=== PATIENT | female | born 1990 | race American Indian/Alaskan Native ===

== ENCOUNTER 2017-07-06 10:33 | Emergency (ER) | payer SELFPAY ==
[2017-07-06 10:59] VITALS: RESP 18; TEMP 98.6
--- NOTE | 2017-07-06 11:06 | ED PDOC ---
Arrival/HPI - General Chief Complaint: Back Pain Time Seen by Provider: 07/06/17 10:56 Historian: Patient - History of Present Illness Time/Duration: > month Symptom Onset: Gradual Symptom Course: Unchanged Quality: Aching Severity Level: Mild Activities at Onset: Rest Associated Symptoms (Text): 07/06/17 11:04 Patient complains of approximately a one-month history of a left lower back pain with radiation into her left anterior thigh. No injury or trauma. No numbness tingling or paresthesias. No weakness. No abdominal pain nausea vomiting diarrhea constipation or GI bleed. No genitourinary symptoms. No vaginal discharge or bleeding. No fever or chills. She takes Advil with some improvement, but the pain returns. Past Medical History - Infectious Disease Hx of Infectious Diseases: None - Reproductive Menopause: No - Past Medical History Past Medical History: No Previous - Psychiatric Hx Depression: No Hx Emotional Abuse: No Hx Physical Abuse: No Hx Substance Use: No - Past Surgical History Past Surgical History: No Previous - Anesthesia Hx Anesthesia: No Hx Anesthesia Reactions: No Hx Malignant Hyperthermia: No - Suicidal Assessment Feels Threatened In Home Enviroment: No Family/Social History - Physician Review Nursing Documentation Reviewed: Yes Family/Social History: Unknown Family HX Smoking Status: Light Smoker < 10 Cigarettes Daily Hx Alcohol Use: No Hx Substance Use: No Allergies/Home Meds Allergies/Adverse Reactions: Allergies No Known Allergies Allergy (Verified 10/08/16 17:56) Review of Systems - Physician Review All systems were reviewed & negative as marked: Yes - Review of Systems Constitutional: Normal Respiratory: Normal Cardiovascular: Normal Gastrointestinal: Normal Genitourinary Female: Normal Musculoskeletal: Back Pain. absent: Neck Pain Neurological: absent: Headache, Dizziness, Focal Weakness, Gait Changes Physical Exam Vital Signs Temp Pulse Resp BP Pulse Ox 07/06/17 10:59 116/85 07/06/17 10:53 98.6 F 72 18 128/84 98 Temperature: Afebrile Blood Pressure: Normal Pulse: Regular Respiratory Rate: Normal Appearance: Positive for: Well-Appearing, Non-Toxic, Comfortable Pain Distress: None Mental Status: Positive for: Alert and Oriented X 3 - Systems Exam Head: Present: Atraumatic, Normocephalic Neck: Present: Normal Range of Motion Respiratory/Chest: Present: Clear to Auscultation, Good Air Exchange. No: Respiratory Distress, Accessory Muscle Use Cardiovascular: Present: Regular Rate and Rhythm, Normal S1, S2. No: Murmurs Abdomen: Present: Normal Bowel Sounds. No: Tenderness, Distention, Peritoneal Signs, Rebound, Guarding Back: Present: Normal Inspection, Paraspinal Tenderness (Left lumbar paraspinous tenderness with no spasm. No sciatic notch tenderness.). No: CVA Tenderness, Midline Tenderness Lower Extremity: Present: Normal Inspection, Normal ROM, Neurovascularly Intact. No: Edema, Tenderness, Swelling Neurological: Present: GCS=15, CN II-XII Intact, Speech Normal, Motor Func Grossly Intact Skin: Present: Warm, Dry, Normal Color. No: Rashes Medical Decision Making ED Course and Treatment: 07/06/17 11:10 Patient reports that she missed work the day before yesterday and the day before that because of this problem and is requesting a note. I discussed with her that I could not give her a note for days missed in the past. She will have her discharge instructions for today. She will be given a prescription for Naprosyn and Flexeril and the phone number for the clinic. Disposition/Present on Arrival - Present on Arrival Any Indicators Present on Arrival: No History of DVT/PE: No History of Uncontrolled Diabetes: No Urinary Catheter: No History of Decub. Ulcer: No History Surgical Site Infection Following: None - Disposition Have Diagnosis and Disposition been Completed?: Yes Diagnosis: Low back pain Disposition: HOME/ ROUTINE Disposition Time: 11:11 Patient Plan: Discharge Condition: GOOD Discharge Instructions (ExitCare): Acute Low Back Pain (ED) Additional Instructions: Rest and moist heat. Follow-up in the clinic. Follow up in ER as needed. Prescriptions: Cyclobenzaprine [Cyclobenzaprine HCl] 5 mg PO Q8 #15 tab Naproxen [Naprosyn] 500 mg PO BID #14 tab Forms: [employer] (Panamanian), WORK NOTE
[2017-07-06 12:03] VITALS: BP 111/72; PULSE 79; O2SAT 99
== END 2017-07-06 12:03 | disposition home or self-care (01) ==
LOC: ED 10:33
DX: M54.5 Low back pain (principal)
CPT/HCPCS: 96372; 99283; J1885

== ENCOUNTER 2018-02-22 12:52 | Emergency (ER) | payer MEDICAID ==
[2018-02-22] MEDS ORDERED: Sodium Chloride 0.9% 500 ML IV STA (13:59)
--- NOTE | 2018-02-22 13:59 | ED PDOC ---
Arrival/HPI - General Chief Complaint: Female Genitourinary Time Seen by Provider: 02/22/18 13:58 Historian: Patient - History of Present Illness Narrative History of Present Illness (Text): 02/22/18 13:59 This 28 yo female who denies pmh presents to this ED c/o feeling light headed, vaginal spotting, urinary frequency, and missed last menstrual period x 3 days ago. Patient feels she may be . Patient also c/o right pelvic cramping. Patient denies flank pain, nausea, vomiting, sob, cp, dysuria, vaginal discharge, CROW, fever, or abnormal gait. LMP: January 19, 2018 Patient denies previous , or Time/Duration: Other (see hpi) Context: Home Past Medical History - Provider Review Nursing Documentation Reviewed: Yes - Past History Past History: No Previous - Infectious Disease Hx of Infectious Diseases: None - Reproductive Menopause: No - Past Medical History Past Medical History: No Previous - Cardiac Hx Cardiac Disorders: No - Pulmonary Hx Respiratory Disorders: No - Neurological Hx Neurological Disorder: No - HEENT Hx HEENT Disorder: No - Endocrine/Metabolic Hx Endocrine Disorders: No - Hematological/Oncological Hx Blood Disorders: No - Integumentary Hx Dermatological Disorder: No - Musculoskeletal/Rheumatological Hx Musculoskeletal Disorders: Yes Hx Back Pain: Yes - Gastrointestinal Hx Gastrointestinal Disorders: No - Genitourinary/Gynecological Hx Genitourinary Disorders: No - Psychiatric Hx Psychophysiologic Disorder: No Hx Depression: No Hx Emotional Abuse: No Hx Physical Abuse: No Hx Substance Use: Yes - Past Surgical History Past Surgical History: No Previous - Anesthesia Hx Anesthesia: No Hx Anesthesia Reactions: No Hx Malignant Hyperthermia: No - Suicidal Assessment Feels Threatened In Home Enviroment: No Family/Social History - Physician Review Nursing Documentation Reviewed: Yes Family/Social History: Other (noncontributory) Smoking Status: Current Some Days Smoker Hx Alcohol Use: Yes Frequency of alcohol use: Socially Hx Substance Use: Yes Substance used: marijuana Hx Substance Use Treatment: No Allergies/Home Meds Allergies/Adverse Reactions: Allergies seasonal Allergy (Uncoded 02/22/18 13:22) CONGESTION Review of Systems - Review of Systems Constitutional: Normal. absent: Fatigue, Weight Change, Fevers, Night Sweats Eyes: Normal ENT: Normal Respiratory: Normal Cardiovascular: Normal Gastrointestinal: Other (Right pelvic pain). absent: Constipation, Diarrhea, Nausea, Vomiting Genitourinary Female: Frequency, Vaginal Bleeding. absent: Dysuria, Vaginal Discharge Musculoskeletal: Normal. absent: Back Pain Skin: Normal. absent: Rash Neurological: Normal, Dizziness. absent: Headache, Focal Weakness, Gait Changes , Speech Changes, Facial Droop, Disequilibrium Endocrine: Normal Hemo/Lymphatic: Normal Psychiatric: Normal Physical Exam Vital Signs Temp Pulse Resp BP Pulse Ox 02/22/18 16:40 98.4 F 86 18 124/74 100 02/22/18 14:52 99 F 97 H 18 127/80 100 02/22/18 13:17 99 F 97 H 18 127/80 100 02/22/18 12:52 99 F 97 H 16 127/80 100 Temperature: Afebrile Blood Pressure: Normal Pulse: Regular Respiratory Rate: Normal Appearance: Positive for: Well-Appearing, Non-Toxic, Comfortable Pain Distress: None Mental Status: Positive for: Alert and Oriented X 3 - Systems Exam Head: Present: Atraumatic, Normocephalic Pupils: Present: PERRL Extroacular Muscles: Present: EOMI Conjunctiva: Present: Normal Mouth: Present: Moist Mucous Membranes Neck: Present: Normal Range of Motion Respiratory/Chest: Present: Clear to Auscultation, Good Air Exchange. No: Respiratory Distress, Accessory Muscle Use Cardiovascular: Present: Regular Rate and Rhythm, Normal S1, S2. No: Murmurs Abdomen: No: Tenderness, Distention, Peritoneal Signs, Rebound, Guarding Genitourinary/Pelvic Exam: Present: Other (deferred) Back: Present: Normal Inspection. No: CVA Tenderness Upper Extremity: Present: Normal Inspection, Normal ROM. No: Cyanosis, Edema Lower Extremity: Present: Normal Inspection, Normal ROM. No: Edema Neurological: Present: GCS=15, CN II-XII Intact, Speech Normal, Motor Func Grossly Intact, Normal Sensory Function, Normal Cerebellar Funct, Gait Normal, Memory Normal Skin: Present: Warm, Dry, Normal Color. No: Rashes Psychiatric: Present: Alert, Oriented x 3, Normal Insight, Normal Concentration Medical Decision Making ED Course and Treatment: 02/22/18 16:27 Re-evaluation. Patient feels better. Discussed results and plan with patient who expresses understanding. All questions answered and there is agreement with the plan to discharge home with instructions. Patient stable for discharge. Return if symptoms persist or worsen Patient was recommended to f/u MELTER OPERATOR in 2 days for revaluation, repeat of Beta Quant., possible repeat U/S. To be complaint with medication, and to return to ED if symptoms worsen. 02/22/18 17:22 HISTORY: vaginal bleeding, right pelvic pain. Patient has positive ECG COMPARISON: None available. TECHNIQUE: Transabdominal/transvaginal sonographic evaluation of the pelvis performed. FINDINGS: UTERUS: Measures 5.8 x 2.5 x 3.5 cm. Normal in size and appearance. No fibroid or other mass lesion seen. ENDOMETRIUM: Endometrium is thickened approximately nearly 1.73 cm. Findings are of uncertain etiology however there is no evidence of intrauterine gestation. The possibility of a early spontaneous or ectopic must be considered and therefore followup serial serum beta HCG and serial ultrasound recommended. CERVIX: No cervical abnormality identified. Cervix measures 3.15 cm RIGHT OVARY: Measures 2.3 x 2.2 x 1.4 cm. No solid mass. Normal flow. LEFT OVARY: Measures 2.2 x 1.8 x 2.1 cm. No solid mass. Normal flow. FREE FLUID: No significant free fluid noted. OTHER FINDINGS: None. IMPRESSION: Thickened endometrium. Findings are of uncertain etiology however there is no evidence of intrauterine gestation. The possibility of a early spontaneous or ectopic must be considered and therefore followup serial serum beta HCG and serial ultrasound recommended. These findings discussed with this room ADAM Irwin at approximately 5 p.m. with written down and read back verification. Re-evaluation Time: 16:29 Reassessment Condition: Re-examined, Improved - Lab Interpretations Lab Results: 02/22/18 14:30 02/22/18 14:30 Lab Results 02/22/18 14:30: Blood Type O POSITIVE, Antibody Screen Negative, BBK History Checked No verified bt 02/22/18 14:30: Beta HCG, Quant 210.70 H 02/22/18 14:30: Sodium 140, Potassium 4.2, Chloride 106, Carbon Dioxide 24, Anion Gap 14, BUN 6 L, Creatinine 0.6 L, Est GFR ( Amer) > 60, Est GFR ( Non-Af Amer) > 60, Random Glucose 86, Calcium 9.2, Total Bilirubin 0.2, AST 17, ALT 25, Alkaline Phosphatase 67, Total Protein 7.3, Albumin 4.0, Globulin 3.2, Albumin/Globulin Ratio 1.2 02/22/18 14:30: WBC 8.2, RBC 3.77, Hgb 11.6 L, Hct 34.5 L, MCV 91.5 D, MCH 30.8 , MCHC 33.6, RDW 13.5, Plt Count 367, MPV 9.6, Gran % 55.7, Lymph % (Auto) 31.9 , [place] % (Auto) 7.5 H, Eos % (Auto) 4.8, Baso % (Auto) 0.1, Gran # 4.55, Lymph # (Auto) 2.6, [place] # (Auto) 0.6, Eos # (Auto) 0.4, Baso # (Auto) 0.01 02/22/18 14:00: Urine Color Yellow, Urine Appearance Sl cloudy, Urine pH 6.0, Ur Specific Mcgreg[place] >= 1.030, Urine Protein 30 H, Urine Glucose (UA) Negative, Urine Ketones Negative, Urine Blood Large H, Urine Nitrate Positive H, Urine Bilirubin Negative, Urine Urobilinogen 0.2, Ur Leukocyte Esterase Negative, Urine RBC 0 - 2, Urine WBC 0 - 2, Ur Epithelial Cells 10 - 12, Urine Bacteria Mod, Urine HCG, Qual Positive I have reviewed the lab results: Yes ((+) ) Interpretation: Abnormal lab values (acute cystitis) - RAD Interpretation Radiology Orders: 02/22/18 14:21 OB TRANSVAGINAL [US] Stat - Medication Orders Current Medication Orders: Discontinued Medications Sodium Chloride (Sodium Chloride 0.9%) 500 mls @ 999 mls/hr IV .Q31M STA Stop: 02/22/18 14:29 Last Admin: 02/22/18 14:48 Dose: 999 mls/hr eMAR Start Stop Document 02/22/18 14:48 SRE (Rec: 02/22/18 14:48 SRE [id number]) Intravenous Solution Start Date 02/22/18 Start Time 14:00 End Date 02/22/18 End time 14:30 Total Infusion Time 30 Ceftriaxone Sodium (Rocephin 1 Gram Ivpb) 1 gm in 100 mls @ 200 mls/hr IVPB STAT STA PRN Reason: Protocol Stop: 02/22/18 14:48 Last Admin: 02/22/18 14:47 Dose: 200 mls/hr eMAR Start Stop Document 02/22/18 14:47 SRE (Rec: 02/22/18 14:48 SRE [id number]) Intravenous Solution Start Date 02/22/18 Start Time 14:30 End Date 02/22/18 End time 15:30 Total Infusion Time 60 Disposition/Present on Arrival - Present on Arrival Any Indicators Present on Arrival: No History of DVT/PE: No History of Uncontrolled Diabetes: No Urinary Catheter: No History of Decub. Ulcer: No History Surgical Site Infection Following: None - Disposition Have Diagnosis and Disposition been Completed?: Yes Diagnosis: Acute cystitis during in first trimester, Vaginal spotting, Pelvic pain affecting in first trimester, antepartum Disposition: HOME/ ROUTINE Disposition Time: 16:30 Patient Plan: Discharge Patient Problems: Current Active Problems Problem Status Onset Acute cystitis during in first trimester Acute Vaginal spotting Acute Pelvic pain affecting in first trimester, antepartum Acute Condition: IMPROVED Discharge Instructions (ExitCare): - The First Month Additional Instructions: Call private MELTER OPERATOR doctor for follow up visit and repeat Beta Quant. blood test and possible repeat pelvic ultrasound in 2 days. Take medication as instructed. Drink enough fluids, and rest. Do not take other medication without MELTER OPERATOR permission. No sexual intercourse till clear by your Field Marketing Lead. You need to have series of Beta Quant. blood test to rule out ectopic versus early . Return to Emergency if symptoms worsen, or unable to see your doctor in 2 days. Prescriptions: Cephalexin [Keflex] 500 mg PO BID #10 capsule 105/Iron/Folic AC/Dha [Prena1 True Combo Pack] 1 each PO DAILY #1 combo..pkg Referrals: [facility] [Outside] - [facility] with [facility] [Outside] - Follow up with primary João Soto MD [Staff Provider] - Follow up with primary Forms: [employer] (Gabonese), WORK NOTE
[2018-02-22 14:15] LABS: URINE BILIRUBIN NEGATIVE (NEGATIVE); URINE BLOOD LARGE (NEGATIVE); URINE GLUCOSE (UA) NEGATIVE (NEGATIVE); URINE LEUKOCYTE ESTERASE NEGATIVE Leu/uL (NEGATIVE); URINE PROTEIN 30 mg/dL (<30 mg/dL); URINE UROBILINOGEN 0.2 E.U./dL (<1 E.U./dL)
[2018-02-22 14:17] LABS: URINE APPEARANCE SL CLOUDY (CLEAR); URINE COLOR YELLOW (YELLOW)
[2018-02-22 14:18] LABS: HCG,QUALITATIVE URINE POSITIVE (NEGATIVE)
[2018-02-22] MEDS ORDERED: cefTRIAXone 1 gm 1 GM/100 ML BAG IVPB STA (14:19)
[2018-02-22 14:31] LABS: URINE RBC 0 - 2 /hpf (0-2); URINE WBC 0 - 2 /hpf (0-6)
[2018-02-22 14:32] LABS: URINE BACTERIA MOD (NEG)
[2018-02-22 14:48] LABS: BASO # 0.01 K/mm3 (0.0-2.0); BASO % 0.1 % (0.0-3.0); EOS # 0.4 (0.0-0.7); EOS % 4.8 % (1.5-5.0); GRAN # 4.55 (1.4-6.5); GRAN % 55.7 % (50.0-68.0); HEMOGLOBIN 11.6 g/dL (12.0-16.0); LYMPH # 2.6 (1.2-3.4); LYMPH % 31.9 % (22.0-35.0); MEAN CELL VOLUME 91.5 fl (80.0-105.0); MEAN CORPUSCULAR HEMOGLOBIN 30.8 pg (25.0-35.0); MEAN CORPUSCULAR HGB CONC 33.6 g/dl (31.0-37.0); MEAN PLATELET VOLUME 9.6 fl (7.0-11.0); MONO # 0.6 (0.1-0.6); MONO % 7.5 % (1.0-6.0); RBC 3.77 10^6/uL (3.5-6.1); RED CELL DISTRIBUTION WIDTH 13.5 % (11.5-14.5); WHITE BLOOD COUNT 8.2 10^3/ul (4.5-11.0)
[2018-02-22 15:02] LABS: ALB/GLOB RATIO 1.2 (1.1-1.8); ALT/SGPT 25 U/L (7-56); AST/SGOT 17 U/L (14-36); BLOOD UREA NITROGEN 6 mg/dL (7-21); CALCIUM 9.2 mg/dL (8.4-10.5); GFR AFRICAN-AMERICAN > 60; GFR NON-AFRICAN AMERICAN > 60
--- NOTE | 2018-02-22 17:04 | US ---
HISTORY: vaginal bleeding, right pelvic pain. Patient has positive ECG COMPARISON: None available. TECHNIQUE: Transabdominal/transvaginal sonographic evaluation of the pelvis performed. FINDINGS: UTERUS: Measures 5.8 x 2.5 x 3.5 cm. Normal in size and appearance. No fibroid or other mass lesion seen. ENDOMETRIUM: Endometrium is thickened approximately nearly 1.73 cm. Findings are of uncertain etiology however there is no evidence of intrauterine gestation. The possibility of a early spontaneous or ectopic must be considered and therefore followup serial serum beta HCG and serial ultrasound recommended. CERVIX: No cervical abnormality identified. Cervix measures 3.15 cm RIGHT OVARY: Measures 2.3 x 2.2 x 1.4 cm. No solid mass. Normal flow. LEFT OVARY: Measures 2.2 x 1.8 x 2.1 cm. No solid mass. Normal flow. FREE FLUID: No significant free fluid noted. OTHER FINDINGS: None. IMPRESSION: Thickened endometrium. Findings are of uncertain etiology however there is no evidence of intrauterine gestation. The possibility of a early spontaneous or ectopic must be considered and therefore followup serial serum beta HCG and serial ultrasound recommended. These findings discussed with this room ADAM Irwin at approximately 5 p.m. with written down and read back verification.
[2018-02-22 17:23] VITALS: BP 125/72; TEMP 98; O2SAT 98
[2018-02-22 17:24] VITALS: PULSE 84; RESP 18
== END 2018-02-22 17:22 | disposition home or self-care (01) ==
LOC: ED 12:52
DX: O20.9 Hemorrhage in early pregnancy, unspecified (principal); O23.11 Infections of bladder in pregnancy, first trimester; N30.90 Cystitis, unspecified without hematuria
CPT/HCPCS: 76817; 80053; 81001; 84702; 84703; 85025; 86850; 86900; 87086; 96365; 99285; J0696; J7040

== ENCOUNTER 2018-03-04 02:25 | Emergency (ER) | payer MEDICAID ==
[2018-03-04 02:28] VITALS: BMI 32.5
[2018-03-04] MEDS ORDERED: Morphine 2 mg/2 mL syringe IVP STA (02:37)
[2018-03-04] MEDS ORDERED: Sodium Chloride 0.9% 1,000 ML IV STA (02:37)
[2018-03-04 03:01] LABS: BASO # 0.02 K/mm3 (0.0-2.0); BASO % 0.2 % (0.0-3.0); EOS # 0.2 (0.0-0.7); EOS % 1.6 % (1.5-5.0); GRAN # 5.98 (1.4-6.5); GRAN % 59.2 % (50.0-68.0); HEMOGLOBIN 11.7 g/dL (12.0-16.0); LYMPH # 3.2 (1.2-3.4); LYMPH % 32.1 % (22.0-35.0); MEAN CELL VOLUME 91.8 fl (80.0-105.0); MEAN CORPUSCULAR HEMOGLOBIN 30.8 pg (25.0-35.0); MEAN CORPUSCULAR HGB CONC 33.5 g/dl (31.0-37.0); MEAN PLATELET VOLUME 9.8 fl (7.0-11.0); MONO # 0.7 (0.1-0.6); MONO % 6.9 % (1.0-6.0); RBC 3.8 10^6/uL (3.5-6.1); RED CELL DISTRIBUTION WIDTH 13.5 % (11.5-14.5); WHITE BLOOD COUNT 10.1 10^3/ul (4.5-11.0)
--- NOTE | 2018-03-04 03:02 | ED PDOC ---
Arrival/HPI - General Chief Complaint: Abdominal Pain Time Seen by Provider: 03/04/18 02:27 Historian: Patient - History of Present Illness Narrative History of Present Illness (Text): 03/04/18 02:59 28 year old female presents to the Emergency department complaining of lower abdominal pain with vaginal bleeding. Patient has been taking Advil with no relief. Patient was evaluated here on 02/22/18 and was diagnosed with a possible miscarriage. Patient denies any fever, chills, chest pain, shortness of breath, nausea, vomiting, diarrhea, urinary symptoms, back pain, neck pain, headache, dizziness, or any other complaints. Time/Duration: < week Symptom Onset: Gradual Symptom Course: Unchanged Context: Home Past Medical History - Provider Review Nursing Documentation Reviewed: Yes - Past History Past History: No Previous - Infectious Disease Hx of Infectious Diseases: None - Past Medical History Past Medical History: No Previous - Cardiac Hx Cardiac Disorders: No - Pulmonary Hx Respiratory Disorders: No - Neurological Hx Neurological Disorder: No - HEENT Hx HEENT Disorder: No - Endocrine/Metabolic Hx Endocrine Disorders: No - Hematological/Oncological Hx Blood Disorders: No - Integumentary Hx Dermatological Disorder: No - Musculoskeletal/Rheumatological Hx Musculoskeletal Disorders: Yes Hx Back Pain: Yes - Gastrointestinal Hx Gastrointestinal Disorders: No - Genitourinary/Gynecological Hx Genitourinary Disorders: No - Psychiatric Hx Psychophysiologic Disorder: No Hx Depression: No Hx Emotional Abuse: No Hx Physical Abuse: No Hx Substance Use: Yes - Past Surgical History Past Surgical History: No Previous - Anesthesia Hx Anesthesia: No Hx Anesthesia Reactions: No Hx Malignant Hyperthermia: No - Suicidal Assessment Feels Threatened In Home Enviroment: No Family/Social History - Physician Review Nursing Documentation Reviewed: Yes Family/Social History: Unknown Family HX Smoking Status: Current Some Days Smoker Hx Alcohol Use: Yes Hx Substance Use: Yes Substance used: marijuana Hx Substance Use Treatment: No Allergies/Home Meds Allergies/Adverse Reactions: Allergies seasonal Allergy (Uncoded 02/22/18 13:22) CONGESTION Review of Systems - Physician Review All systems were reviewed & negative as marked: Yes - Review of Systems Constitutional: absent: Fevers, Night Sweats Respiratory: absent: SOB Cardiovascular: absent: Chest Pain Gastrointestinal: Abdominal Pain. absent: Diarrhea, Nausea, Vomiting Genitourinary Female: Vaginal Bleeding. absent: Dysuria Musculoskeletal: absent: Back Pain, Neck Pain Neurological: absent: Headache, Dizziness Physical Exam Vital Signs Reviewed: Yes Vital Signs Pulse Resp BP Pulse Ox 03/04/18 06:10 76 18 145/60 96 - Systems Exam Head: Present: Atraumatic, Normocephalic Pupils: Present: PERRL Extroacular Muscles: Present: EOMI Conjunctiva: Present: Normal Mouth: Present: Moist Mucous Membranes Neck: Present: Normal Range of Motion Respiratory/Chest: Present: Clear to Auscultation, Good Air Exchange. No: Respiratory Distress, Accessory Muscle Use Cardiovascular: Present: Regular Rate and Rhythm, Normal S1, S2. No: Murmurs Abdomen: No: Tenderness, Distention, Peritoneal Signs Back: Present: Normal Inspection Upper Extremity: Present: Normal Inspection. No: Cyanosis, Edema Lower Extremity: Present: Normal Inspection. No: Edema Neurological: Present: GCS=15, CN II-XII Intact, Speech Normal Skin: Present: Warm, Dry, Normal Color. No: Rashes Psychiatric: Present: Alert, Oriented x 3, Normal Insight, Normal Concentration Medical Decision Making ED Course and Treatment: 03/04/18 03:03 Impression: 28 year old female presents to the Emergency department complaining of lower abdominal pain and vaginal bleeding. Plan: -- Transvaginal US -- Labs -- Morphine and Sodium Chloride IV fluids -- Reassess and disposition Prior Visits: Notes and results from previous visits were reviewed. Patient was last seen in the emergency department on 02/22/18, was diagnosed with Acute cystitis during in first trimester, Vaginal spotting, Pelvic pain affecting in first trimester, antepartum, and was discharged home. pt feels better will dc 03/04/18 23:16 - Lab Interpretations Lab Results: 03/04/18 02:50 03/04/18 02:50 Lab Results 03/04/18 02:50: Beta HCG, Quant 67.99 H 03/04/18 02:50: Sodium 143, Potassium 3.4 L, Chloride 108 H, Carbon Dioxide 20 L , Anion Gap 18, BUN 7, Creatinine 0.6 L, Est GFR ( Amer) > 60, Est GFR ( Non-Af Amer) > 60, Random Glucose 108, Calcium 10.0, Total Bilirubin 0.1 L, AST 22, ALT 24, Alkaline Phosphatase 76, Total Protein 7.9, Albumin 4.5, Globulin 3.5, Albumin/Globulin Ratio 1.3 03/04/18 02:50: WBC 10.1 D, RBC 3.80, Hgb 11.7 L, Hct 34.9 L, MCV 91.8, MCH 30.8, MCHC 33.5, RDW 13.5, Plt Count 434, MPV 9.8, Gran % 59.2, Lymph % (Auto) 32.1, [place] % (Auto) 6.9 H, Eos % (Auto) 1.6, Baso % (Auto) 0.2, Gran # 5.98, Lymph # (Auto) 3.2, [place] # (Auto) 0.7 H, Eos # (Auto) 0.2, Baso # (Auto) 0.02 - RAD Interpretation Narrative RAD Interpretations (Text): 03/04/18 04:59 OB TRANSVAGINAL FINDINGS: Gestation: No intrauterine gestational sac. Uterus/cervix: Endometrium: 1.0 cm in thickness. Closed cervix. Ovaries: Normal ovaries. No adnexal masses. Free fluid: No significant free fluid. IMPRESSION: 1. No intrauterine gestation. DDX: Early IUP, missed , ectopic . Radiology Orders: 03/04/18 02:37 OB TRANSVAGINAL [US] Stat - Medication Orders Current Medication Orders: Discontinued Medications Sodium Chloride (Sodium Chloride 0.9%) 1,000 mls @ 100 mls/hr IV .Q10H STA Stop: 03/04/18 12:36 Last Admin: 03/04/18 02:52 Dose: 100 mls/hr eMAR Start Stop Document 03/04/18 02:52 (Rec: 03/04/18 02:52 [id number] Intravenous Solution Start Date 03/04/18 Start Time 02:52 Metoclopramide HCl (Reglan) 10 mg IVP ONCE ONE Stop: 03/04/18 03:26 Last Admin: 03/04/18 03:30 Dose: 10 mg IVP Administration Document 03/04/18 03:30 PADMA (Rec: 03/04/18 03:39 [id number] Charges for Administration # of IVP Administrations 1 Morphine Sulfate (Morphine) 2 mg IVP STAT STA Stop: 03/04/18 02:38 Last Admin: 06/06/18 02:49 Dose: 2 mg IVP Administration Document 03/04/18 02:49 PADMA (Rec: 03/04/18 02:52 [facility] [id number]) Charges for Administration # of IVP Administrations 1 - Scribe Statement The provider has reviewed the documentation as recorded by the Scribe Nagi Vizcaino Provider Scribe Attestation: All medical record entries made by the Scribe were at my direction and personally dictated by me. I have reviewed the chart and agree that the record accurately reflects my personal performance of the history, physical exam, medical decision making, and the department course for this patient. I have also personally directed, reviewed, and agree with the discharge instructions and disposition. Disposition/Present on Arrival - Present on Arrival Any Indicators Present on Arrival: No History of DVT/PE: No History of Uncontrolled Diabetes: No Urinary Catheter: No History of Decub. Ulcer: No History Surgical Site Infection Following: None - Disposition Have Diagnosis and Disposition been Completed?: Yes Diagnosis: Incomplete Disposition: HOME/ ROUTINE Disposition Time: 06:00 Condition: IMPROVED Discharge Instructions (ExitCare): Miscarriage, Dealing With Miscarriage Prescriptions: Tramadol HCl [Ultram] 50 mg PO QID #12 tab Referrals: FAMILY PROVIDER,NO [Primary Care Provider] - Follow up with primary Forms: [employer] ([place]ian)
[2018-03-04 03:30] LABS: ALB/GLOB RATIO 1.3 (1.1-1.8); ALBUMIN 4.5 g/dL (3.0-4.8); ALT/SGPT 24 U/L (7-56); AST/SGOT 22 U/L (14-36); BLOOD UREA NITROGEN 7 mg/dL (7-21); GFR AFRICAN-AMERICAN > 60; GFR NON-AFRICAN AMERICAN > 60
--- NOTE | 2018-03-04 04:59 | US ---
EXAM: US First Trimester, Transabdominal US , Transvaginal CLINICAL HISTORY: 28 years old, female; Pain; complicated by abdominal or pelvic pain; Lower; First trimester; Gestational age or lmp: 01/19/2018; Additional info: R/O miscarriage TECHNIQUE: Real-time transabdominal and transvaginal obstetrical ultrasound of the maternal pelvis and a first trimester with image documentation. Transvaginal imaging was used for better evaluation of the fetus and adnexa. COMPARISON: US - OB TRANSVAGINAL 2018-02-22 15:14 FINDINGS: Gestation: No intrauterine gestational sac. Uterus/cervix: Endometrium: 1.0 cm in thickness. Closed cervix. Ovaries: Normal ovaries. No adnexal masses. Free fluid: No significant free fluid. IMPRESSION: 1. No intrauterine gestation. DDX: Early IUP, missed , ectopic .
[2018-03-04 06:45] VITALS: BP 145/60; PULSE 76; RESP 18; O2SAT 96
== END 2018-03-04 06:10 | disposition home or self-care (01) ==
LOC: ED 02:25
DX: O03.4 Incomplete spontaneous abortion without complication (principal)
CPT/HCPCS: 76817; 80053; 84702; 85025; 96374; 96375; 99284; J2270; J2765; J7030